=== PATIENT | female | born 1955 | race Two or more races ===

== ENCOUNTER 2024-11-21 20:00 | Emergency (ER) | payer OTHER, MEDICAID, SELFPAY ==
[2024-11-21 20:01] VITALS: BMI 43.9
[2024-11-21 20:07] VITALS: BP 134/82; PULSE 78; RESP 18; TEMP 36.6; O2SAT 96
--- NOTE | 2024-11-21 20:26 | PD.EDLOWEX ---
Lower Extremity Injury RME/HPI General Chief Complaint: Extremity Injury, Lower Stated Complaint: Left foot blister, pt is DM Time Seen by Provider: 11/21/24 20:13 Arrival date/time: 11/21/24 20:00 RME / HPI RME / HPI Narrative: 68-year-old female presents with complaint of left foot pain for 2 days. Patient states that she rubbed her foot with tape because she is diabetic. No trauma/injury. Related Data Home Medications ?Medication ?Instructions ?Recorded ?Confirmed lisinopril 20 mg tablet 20 mg PO QDAY #0 tabs 02/01/16 03/28/21 Held on 04/01/21. Instructions: Resume on 04/06/21. lovastatin 20 mg tablet 20 mg PO QDAY 03/07/18 03/28/21 Previous Rx's ?Medication ?Instructions ?Recorded hydrocodone 7.5 mg-ibuprofen 200 1 tab PO Q8H PRN pain #14 tabs 03/27/21 mg tablet aspirin 81 mg tablet,delayed 81 mg PO QDAY #30 tabs 04/01/21 release (Adult Aspirin Regimen) cefuroxime axetil 500 mg tablet 500 mg PO BID #20 tabs 04/01/21 metformin 500 mg tablet 1,000 mg (2 x 500 mg) PO BID #0 04/01/21 tabs Allergies Allergy/AdvReac Type Severity Reaction Status Date / Time No Known Allergies Allergy Verified 03/28/21 11:26 Review of Systems Review of Systems Narrative Review of Systems: Review of systems negative except as outlined in the HPI. ED Exam Narrative Physical exam: Constitutional: no acute distress, age appropriate, non-toxic Eyes: conjunctivae w/o pallor, EOMI HENT: normocephalic, atraumatic. Respiratory Effort: no stridor, effort normal, no tachypnea Skin: warm, dry; No rash. On the lateral aspect of the left foot there is a small bunion. No ulcer. No erythema Neurology: alert, oriented X 4. Normal gait Psychology: cooperative, normal mood Course Quality Measures none Orders Category Date Time Status Acetaminophen Tab [Tylenol ES Tab] Med 11/21/24 20:48 Discontinued 1,000 mg PO X1 ONE HYDROcodone*/APAP 5/325 [[place] 5/325] Med 11/21/24 20:25 Discontinued 1 tab PO X1 ONE Vital Signs Vital signs: Vital Signs Temperature 97.9 F 11/21/24 20:07 Pulse Rate 78 11/21/24 20:07 Respiratory Rate 18 11/21/24 20:07 Blood Pressure 134/82 H 11/21/24 20:07 Pulse Oximetry (%) 96 11/21/24 20:07 Oxygen Delivery Method Room Air 11/21/24 20:07 Extremity Injury, Lower Patient data External records reviewed:: [facility] previous records Clinical information provided by:: patient Social determinants that could affect healthcare access:: none Patient has the following chronic illnesses:: Diabetes How is presenting disease/condition affected by chronic disease/condition?: exacerbated by Evaluation data The following diagnostics were reviewed and interpreted by me:: other (specify) (N/A) Lab and/or radiology exams considered but not ordered:: Labs and imaging considered but not indicated Interpretation Summary: N/A Medications / Prescriptions Medications or Prescriptions considered but not ordered:: N/A Medication administrations:: Medication Administration History Discontinued Medications Acetaminophen (Acetaminophen 500 Mg Tablet) 1,000 mg PO X1 ONE Stop: 11/21/24 20:49 Last Admin: 11/21/24 20:58 Dose: 1,000 mg Documented By: Hydrocodone Bitart/Acetaminophen (Hydrocodone/Apap 5/325 Tablet) 1 tab PO X1 ONE Stop: 11/21/24 20:26 See above Consultations Consultation(s) initiated? (list below): No Diagnosis Most likely diagnosis given after review of the tests above:: Bunion Admission Indicated Admission indicated?: not indicated Admission Request Was there a request for admission?: No Disposition Plan Disposition Plan: Discharge Discharge Attestation Discharge Attestation: The patient and all family members were given an opportunity to ask questions and understood the discharge instructions. Discharge instructions specifically effects, indications for sooner follow up or return to the emergency department, and the expected course of current diagnosis. Patient condition: Stable Discharge Plan Plan Patient Disposition: HOME (Self Care) Prescriptions/Referrals Prescriptions/Med Rec: No Action lisinopril 20 MG tablet 20 mg PO QDAY Qty: 0 lovastatin 20 mg Tablet 20 mg PO QDAY hydrocodone-ibuprofen 7.5-200 mg tablet 1 tab PO Q8H MDD 3 PRN (Reason: pain) Qty: 14 0RF metformin 500 mg Tablet 1,000 mg PO BID Qty: 0 0RF cefuroxime axetil 500 mg tablet 500 mg PO BID Qty: 20 0RF aspirin [Adult Aspirin Regimen] 81 mg tablet,delayed release (DR/EC) 81 mg PO QDAY Qty: 30 0RF Problem List Clinical Impression: [place] Patient/Caregiver Discharge Instructions Education Materials: ED Leeanne Additional Instructions: 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 Return to the ED for new or worsening symptoms. Print Language: Lao Stand Alone Forms: Ign[facility] Award Info., Patient Portal Info Letter
[2024-11-21] MEDS: ACETAMINOPHEN 500 MG TABLET 1000 MG PO (20:58)
== END 2024-11-21 21:45 | disposition home or self-care (01) ==
LOC: SERX 20:37
PROVIDERS: Emergency Provider Emergency Medicine; PCP Family Medicine
DX: M21.612 Bunion of left foot (principal); E11.9 Type 2 diabetes mellitus without complications
CPT/HCPCS: 99282; A9270